=== PATIENT | female | born 1975 | race Caucasian/White ===

== ENCOUNTER 2020-08-30 08:56 | Outpatient (CLI) | payer OTHER, SELFPAY ==
--- NOTE | 2020-09-04 10:16 | P.NEURO_ITS ---
Neurology EEG Report General Information Date of Study: 08/30/20 TEST EEG DIAGNOSIS vertigo CONDITION OF RECORDING awake and drowsy EEG NUMBER [id number] CLINICAL HISTORY patient reported she has been having extreme vertigo and confusion with occasional visual disturbances EEG DESCRIPTION basic resting occipital frequency consists of low to medium voltage 9 to 10 hertz per 2nd alpha admixed with low-voltage 15 to 18 hertz per 2nd beta. Low- voltage beta activity seen diffusely mixed with waxing and waning posterior alpha rhythm during drowsiness. Bilateral symmetrical sleep activity seen during sleep with normal and symmetrical sleep spindles. Photic stimulation produced normal drive. Hyperventilation not done. Non paroxysmal. Nonfocal. Nonlateralizing. IMPRESSION Normal record
== END 2020-08-30 08:57 | disposition home or self-care (01) ==
PROVIDERS: PCP Family Medicine Sports Medicine; Visit Provider Psychiatry & Neurology Neurology
DX: R42 Dizziness and giddiness (principal)
CPT/HCPCS: 95816

== ENCOUNTER 2020-11-06 12:48 | Outpatient (CLI) | payer OTHER, SELFPAY ==
--- NOTE | 2020-11-06 15:00 | NEURO_ITS ---
Impression: # Complains of numbness of hands. # Bilateral Carpal Tunnel Syndrome, right more than left, of moderate degree. # No ulnar neuropathy. # Needle/EMG exam mildly neurogenic in APB bilaterally. Nerve Conduction Studies Anti Sensory Summary Table Stim Site NR Peak (ms) P-T Amp (?V) Site1 Site2 Delta-P (ms) Dist (cm) Dawson (m/s) Left Median Anti Sensory (2-3nd Digit) Wrist 4.5 20.5 Wrist 2-3nd Digit 4.5 14.0 31 Wrist 5.2 12.4 Wrist 2-3nd Digit 4.5 14.0 31 Right Median Anti Sensory (2-3nd Digit) Wrist 4.6 13.9 Wrist 2-3nd Digit 4.6 14.0 30 Wrist 5.1 17.8 Wrist 2-3nd Digit 4.6 14.0 30 Left Radial Anti Sensory (Base 1st Digit) Wrist 2.0 42.5 Wrist Base 1st Digit 2.0 0.0 Right Radial Anti Sensory (Base 1st Digit) Wrist 2.2 26.4 Wrist Base 1st Digit 2.2 0.0 Left Ulnar Anti Sensory (5th Digit) Wrist 2.4 77.3 Wrist 5th Digit 2.4 14.0 58 Right Ulnar Anti Sensory (5th Digit) Wrist 2.3 59.6 Wrist 5th Digit 2.3 14.0 61 Motor Summary Table Stim Site NR Onset (ms) O-P Amp (mV) Site1 Site2 Delta-0 (ms) Dist (cm) Dawson (m/s) Left Median Motor (Abd Poll Brev) Wrist 4.3 3.6 Elbow Wrist 4.6 28.0 61 Elbow 8.9 4.6 Right Median Motor (Abd Poll Brev) Wrist 6.1 2.2 Elbow Wrist 4.7 27.0 57 Elbow 10.8 2.3 Left Ulnar Motor (Abd Dig Minimi) Wrist 2.3 9.4 A Elbow Wrist 4.7 30.0 64 A Elbow 7.0 8.8 Right Ulnar Motor (Abd Dig Minimi) Wrist 2.5 7.6 A Elbow Wrist 4.5 28.0 62 A Elbow 7.0 6.8 F Wave Studies NR F-Lat (ms) L-R F-Lat (ms) Left Median (Mrkrs) (Abd Poll Brev) 28.45 0.38 Right Median (Mrkrs) (Abd Poll Brev) 28.07 0.38 Left Ulnar (Mrkrs) (Abd Dig Min) 26.52 0.74 Right Ulnar (Mrkrs) (Abd Dig Min) 25.78 0.74 EMG Side Muscle Nerve Root Ins Act Fibs Amp Dur Recrt Comment Right 1stDorInt Ulnar C8-T1 Nml Nml Nml Nml Nml Right Ext Indicis Radial (Post Int) C7-8 Nml Nml Nml Nml Nml Right Ext Digitorum Radial (Post Int) C7-8 Nml Nml Nml Nml Nml Right BrachioRad Radial C5-6 Nml Nml Nml Nml Nml Right PronatorTeres Median C6-7 Nml Nml Nml Nml Nml Right Abd Poll Brev Median C8-T1 Nml Nml Incr >12ms Reduced Left 1stDorInt Ulnar C8-T1 Nml Nml Nml Nml Nml Left Ext Indicis Radial (Post Int) C7-8 Nml Nml Nml Nml Nml Left Ext Digitorum Radial (Post Int) C7-8 Nml Nml Nml Nml Nml Left BrachioRad Radial C5-6 Nml Nml Nml Nml Nml Left PronatorTeres Median C6-7 Nml Nml Nml Nml Nml Left Abd Poll Brev Median C8-T1 Nml Nml Nml Nml Reduced MTDD
== END 2020-11-06 12:49 | disposition home or self-care (01) ==
LOC: ANHNEURO 12:49
PROVIDERS: PCP Family Medicine Sports Medicine; Visit Provider Psychiatry & Neurology Neurology
DX: R20.2 Paresthesia of skin (principal); G56.03 Carpal tunnel syndrome, bilateral upper limbs
CPT/HCPCS: 95886; 95911

== ENCOUNTER → 2020-12-16 01:36 | Outpatient (CLI) | payer OTHER, SELFPAY ==
[2020-12-16 20:12] LABS: SARS-CoV-2 RNA PCR Negative
== END ==
PROVIDERS: PCP Family Medicine Sports Medicine; Visit Provider Plastic Surgery
DX: Z01.812 Encounter for preprocedural laboratory examination (principal); Z20.822 Contact with and (suspected) exposure to COVID-19
CPT/HCPCS: C9803; U0003; U0005

== ENCOUNTER 2020-12-19 02:50 | Day surgery (SDC) | payer OTHER, SELFPAY ==
[2020-12-09 10:24] VITALS: BMI 30.6
[2020-12-19] MEDS: LACTATED RINGERS 1,000 ML 30 ML IV CONT (06:57)
[2020-12-19 07:10] VITALS: BP 101/59; PULSE 64; TEMP 37.1; O2SAT 98
--- NOTE | 2020-12-19 07:13 | P.PNAN_ITS ---
Anes - Initial Pre Proc Eval Procedure: Operation Date: 12/19/20 08:15 Proposed Procedures p Right Open Carpal Tunnel Release - Frederick Willis MD Date/Time: 12/19/20 07:13 Surgeon: Frederick Willis MD Pre Op Diagnosis: right carpal tunnel syndrome Patient Data Age: 45 Gender: F Height: 5 ft 6 in Weight: 87.7 kg Allergies Allergy/AdvReac Type Severity Reaction Status Date / Time sertraline AdvReac Mild NAUSEA & Verified 12/19/20 06:42 VOMITTING Home Medications Medication Instructions Recorded Confirmed Type bupropion HCl 450 mg PO DAILY 12/09/20 12/19/20 History buspirone 5 mg PO DAILY 12/09/20 12/19/20 History fluoxetine 40 mg PO DAILY 12/09/20 12/19/20 History loratadine 10 mg PO DAILY 12/09/20 12/19/20 History montelukast 10 mg PO DAILY 12/09/20 12/19/20 History ziprasidone HCl 60 mg PO DAILY 12/09/20 12/19/20 History Patient hx anesthesia problems: none Family hx anesthesia problems: none [facility] Past Medical History Medical History Anxiety Depression TODD (obstructive sleep apnea) Social History Social History Smoking status: Never smoker Substance use: never Living arrangements: with family Gender identity (if verbalized by the patient): Female Spiritual care concerns: No Anes - Eval Final PreProcedure Day of Procedure 12/19/20 07:13 Patient weight: obese Heart: regular rate and rhythm Lungs: clear to auscultation Airway: Mallampati scale class II Neurological: alert and oriented Last oral intake: >/= 8 hours ASA classification: III Emergent: no Anesthetic plan: proceed Anesthesia type and monitoring: general GIVS and standard monitoring Informed Consent: The patient's anesthetic plan and its attendant risks and benefits were discussed with the patient/family/POA. Questions were solicited and answers provided to the satisfaction of the patient/family/POA.
--- NOTE | 2020-12-19 07:20 | WPDHPUPDATE1 ---
History and Physical Update Update Date/Time: 12/19/20 07:20 History and Physical has been reviewed, including an updated exam of the patient. There are NO changes in the patient's condition. Risks, benefits, and alternatives have been discussed and questions answered. Patient agrees to proceed with procedure.
[2020-12-19] MEDS: SCOPOLAMINE 1.5 MG PATCH TRANSDERM (07:28)
[2020-12-19] MEDS: LIDO 1%/EPINEPHRINE 1:100,000 50 ML VIAL 6 ML INFILTRATE (08:39)
--- NOTE | 2020-12-19 09:05 | PM.OP ---
Procedure Note - Brief Procedure Note - Brief Date of procedure: 12/19/20 Pre-op diagnosis: right carpal tunnel syndrome Post-op diagnosis: same Procedure performed: R OCTR Anesthesia: MAC Surgeon: Frederick Willis MD Estimated blood loss (mL): 0 Tourniquet time (min): 6 Drains: No Packing: No Pathology: none sent Complications: No immediate complications Condition: stable Disposition: same day
[2020-12-19 09:06] VITALS: BP 113/64; PULSE 71; RESP 10; O2SAT 95
--- NOTE | 2020-12-19 09:10 | PM.PROC ---
Procedure Note - Detailed Date of procedure: 12/19/20 Pre-op diagnosis: right carpal tunnel syndrome Post-op diagnosis: same Procedure performed: Right open carpal tunnel release Description of procedure: The right volar wrist was marked in the holding area. She was taken to the operating room and placed supine on the operating table. A time-out was held and confirmed. She was given IV sedation and the right upper extremity was prepped and draped in usual fashion. The site was locally infiltrated with 1% lidocaine with epinephrine. The site was remarked and the tourniquet was inflated to 250 mmHg. The incision was made as marked and carried bluntly through the subcutaneous fat to the palmar aponeurosis. This and the transverse carpal ligament were incised with a 15. Blade. This opened the canal under 3 point retraction the ligament was divided distally and proximally to completely release it. There was no unusual anatomy noted. The skin repair was done with 4-0 nylon suture. The small bandage with Terrence wrap was applied the tourniquet was released she is discharged from the operating room in stable condition. She has a prescription for hydrocodone 5/325 10. Surgeon: Frederick Willis MD
[2020-12-19 09:35] VITALS: BP 123/78; PULSE 69; RESP 16
== END 2020-12-19 09:53 | disposition home or self-care (01) ==
PROVIDERS: PCP Family Medicine Sports Medicine; Visit Provider Plastic Surgery
PROC: (CPT 64721; principal; 2020-12-19 08:15)
DX: G56.01 Carpal tunnel syndrome, right upper limb (principal); G47.33 Obstructive sleep apnea (adult) (pediatric); F41.8 Other specified anxiety disorders; E66.9 Obesity, unspecified; Z68.31 Body mass index [BMI] 31.0-31.9, adult
CPT/HCPCS: 64721; A9270; J1100; J2250; J2405; J2704; J3010; J7120

== ENCOUNTER → 2021-01-18 02:04 | Outpatient (CLI) | payer OTHER, SELFPAY ==
[2021-01-18 19:16] LABS: SARS-CoV-2 RNA PCR Negative
== END ==
PROVIDERS: PCP Family Medicine Sports Medicine; Visit Provider Plastic Surgery
DX: Z01.812 Encounter for preprocedural laboratory examination (principal); Z20.822 Contact with and (suspected) exposure to COVID-19
CPT/HCPCS: C9803; U0003; U0005

== ENCOUNTER 2021-01-22 00:59 | Day surgery (SDC) | payer OTHER, SELFPAY ==
[2021-01-15 13:46] VITALS: BMI 30.6
--- NOTE | 2021-01-22 07:04 | P.PNAN_ITS ---
Anes - Initial Pre Proc Eval Procedure: Operation Date: 01/22/21 08:15 Proposed Procedures p Open Left Carpal Tunnel Release - Frederick Willis MD Date/Time: 01/22/21 07:04 Surgeon: Frederick Willis MD Pre Op Diagnosis: left carpal tunnel syndrome Patient Data Age: 45 Gender: F Height: 1.68 m Weight: 86 kg Allergies Allergy/AdvReac Type Severity Reaction Status Date / Time sulfamethoxazole Allergy Severe Rash Verified 01/15/21 13:45 [From Bactrim] trimethoprim [From Bactrim] Allergy Severe Rash Verified 01/15/21 13:45 duloxetine [From Cymbalta] AdvReac Mild Nausea and Verified 01/15/21 13:45 Vomiting sertraline AdvReac Mild NAUSEA & Verified 01/15/21 13:44 VOMITTING Home Medications Medication Instructions Recorded Confirmed Type bupropion HCl 450 mg PO DAILY 12/09/20 01/15/21 History buspirone 5 mg PO DAILY 12/09/20 01/15/21 History fluoxetine 40 mg PO DAILY 12/09/20 01/15/21 History loratadine 10 mg PO DAILY 12/09/20 01/15/21 History montelukast 10 mg PO DAILY 12/09/20 01/15/21 History ziprasidone HCl 60 mg PO DAILY 12/09/20 01/15/21 History magnesium 100 mg PO DAILY 01/15/21 01/15/21 History potassium 75 mg PO DAILY 01/15/21 01/15/21 History Patient hx anesthesia problems: none Family hx anesthesia problems: none [facility] Past Medical History Medical History (Updated 01/21/21 @ 13:19 by Anand Harmon DO) Anxiety Depression GERD (gastroesophageal reflux disease) TODD (obstructive sleep apnea) Social History Social History Smoking status: Never smoker Alcohol intake: never Substance use: never Substance use type: does not use Living arrangements: with family Gender identity (if verbalized by the patient): Female Spiritual care concerns: No Anes - Eval Final PreProcedure Day of Procedure 01/22/21 07:04 Patient weight: obese Heart: regular rate and rhythm Lungs: clear to auscultation and normal air movement Airway: Mallampati scale class II Neurological: alert and oriented Last oral intake: >/= 8 hours ASA classification: III Emergent: no Anesthetic plan: proceed Anesthesia type and monitoring: general GIVS and standard monitoring Informed Consent: The patient's anesthetic plan and its attendant risks and benefits were discussed with the patient/family/POA. Questions were solicited and answers provided to the satisfaction of the patient/family/POA.
--- NOTE | 2021-01-22 07:09 | WPDHPUPDATE1 ---
History and Physical Update Update Date/Time: 01/22/21 07:09 History and Physical has been reviewed, including an updated exam of the patient. There are NO changes in the patient's condition. Risks, benefits, and alternatives have been discussed and questions answered. Patient agrees to proceed with procedure.
[2021-01-22] MEDS: LACTATED RINGERS 1,000 ML 30 ML IV CONT (07:35)
[2021-01-22 07:43] VITALS: BP 116/80; PULSE 90; RESP 18; TEMP 37.3; O2SAT 100; BMI 31.8
--- NOTE | 2021-01-22 07:49 | SUR.PREOP ---
DOCUMENTATION CHANGED TO LT HAND/WRIST FOR NEURO CHECK. NOT THE RIGHT. TODAY IS LEFT CTR
[2021-01-22] MEDS: LIDO 1%/EPINEPHRINE 1:100,000 50 ML VIAL INFILTRATE (08:23)
[2021-01-22 08:25] VITALS: BP 109/69; PULSE 80; RESP 14; O2SAT 96
--- NOTE | 2021-01-22 08:29 | PM.OP ---
Procedure Note - Brief Procedure Note - Brief Date of procedure: 01/22/21 Pre-op diagnosis: left carpal tunnel syndrome Post-op diagnosis: same Procedure performed: L OCTR Anesthesia: MAC Surgeon: Frederick Willis MD Estimated blood loss (mL): 0 Tourniquet time (min): 5 Drains: No Packing: No Pathology: none sent Complications: No immediate complications Condition: stable Disposition: same day
--- NOTE | 2021-01-22 08:31 | P.OP_ITS ---
Procedure Note - Detailed Date of procedure: 01/22/21 Pre-op diagnosis: left carpal tunnel syndrome Post-op diagnosis: same Procedure performed: L OCTR Description of procedure: The site was marked on the patient's left wrist in the holding area. She was taken to the operating room and placed supine on the operating table. A time-out was held and confirmed. She was given IV sedation and the extremity was prepped and draped in usual fashion. The tourniquet inflated to 250 mmHg. The site had been locally infiltrated with 1% lidocaine with epinephrine. The incision was made as marked. Dissection was carried through the subcutaneous tissue to the palmar aponeurosis. This and the transverse carpal ligament were incised with a 15. Blade. Under 3 point retraction the ligament was divided distally and proximally to completely rele ase it. The skin was closed with interrupted 5 0 nylon suture. No unusual anatomy was noted. The usual bandage was applied the tourniquet was released and she was discharged from the operating room stable condition she has a prescription for hydrocodone 5/325 8.. Anesthesia: MAC Surgeon: Frederick Willis MD Estimated blood loss (mL): 0 Tourniquet time (min): 5 Drains: No Packing: No Pathology: none sent Complications: No immediate complications Condition: stable Disposition: same day
[2021-01-22 08:55] VITALS: BP 114/69; PULSE 81
[2021-01-22 09:19] VITALS: BP 115/75; PULSE 82
== END 2021-01-22 09:30 | disposition home or self-care (01) ==
PROVIDERS: PCP Family Medicine Sports Medicine; Visit Provider Plastic Surgery
PROC: (CPT 64721; principal; 2021-01-22 08:15)
DX: G56.02 Carpal tunnel syndrome, left upper limb (principal); F41.8 Other specified anxiety disorders; G47.33 Obstructive sleep apnea (adult) (pediatric); K21.9 Gastro-esophageal reflux disease without esophagitis; E66.9 Obesity, unspecified; Z68.31 Body mass index [BMI] 31.0-31.9, adult
CPT/HCPCS: 64721; A9270; J2250; J2405; J2704; J3010; J7120